=== PATIENT | female | born 1975 | race Caucasian/White ===

== ENCOUNTER 2016-10-05 17:53 | Emergency (ER) | payer BC ==
[2016-10-05 18:03] VITALS: TEMP 99.8; O2SAT 97
[2016-10-05] MEDS ORDERED: KETOROLAC TROMETHAMINE INJ 30 MG/ML VIAL IM ONE (18:05)
--- NOTE | 2016-10-05 18:06 | ED.PDOC ---
History of Present Illness - General Chief Complaint: ENT Problem Stated Complaint: right ear pain Time Seen by Provider: 10/05/16 18:04 Source: patient Exam Limitations: no limitations - History of Present Illness Initial Comments: Patient presents with right ear pain for one day. It started insidiously and has worsened. Pain is inside the ear canal with radiation to her cheek. She has had a subjective fever and some green drainage from the ear. She took a "days worth" of cephalexin that she had left over from a dental issue. No other symptoms. Timing/Duration: 24 hours Severity: moderate Improving Factors: nothing Worsening Factors: nothing Associated Symptoms: fever/chills Allergies/Adverse Reactions: Allergies NO KNOWN ALLERGY Allergy (Unverified 08/15/12 13:47) Home Medications: Ambulatory Orders Alprazolam [Xanax] 1 mg PO BID PRN 10/05/16 Amoxicillin & Pot Clavulanate [Augmentin] 875 mg PO BID #20 tab 10/05/16 Gabapentin [Neurontin] 300 mg PO BID 10/05/16 Xrrysqkp-Ciwjimcyf-Zh (Otic) [Neomycin/Polymyxin/Hydroc 1 %] 4 drop OT QID #1 bernadette 10/05/16 Sertraline HCl [Zoloft] 125 mg PO DAILY 10/05/16 Review of Systems - Review of Systems Constitutional: States: see HPI EENTM: States: see HPI Respiratory: States: no symptoms reported Cardiology: States: no symptoms reported Gastrointestinal/Abdominal: States: no symptoms reported Genitourinary: States: no symptoms reported Musculoskeletal: States: no symptoms reported Skin: States: no symptoms reported Neurological: States: no symptoms reported Endocrine: States: no symptoms reported Hematologic/Lymphatic: States: no symptoms reported Past Medical History (General) - Patient Medical History Hx Congestive Heart Failure: No Hx Diabetes: No Surgical History: Hysterectomy - Vaccination History Hx Influenza Vaccination: No - Social History Hx Tobacco Use: No - Female History Patient is a Female of Child Bearing Age (10 -57 yrs old): No Family Medical History - Family History Mother Family History: Unknown Living Status: Unknown Physical Exam - Physical Exam General Appearance: Alert Eye Exam: bilateral normal Ears, Nose, Throat: other - Right TM is occluded by green purulence and swelling. Left TM is clear. There is right post-auricular LAD with swelling of the external auditory canal and cheek. No nasal exudate. OP is clear. Neck: non-tender, full range of motion, supple, lymphadenopathy (R) Respiratory: chest non-tender, lungs clear, normal breath sounds Cardiovascular/Chest: normal peripheral pulses, regular rate, rhythm Gastrointestinal/Abdominal: normal bowel sounds, non tender, soft Skin Exam: normal color Progress - Progress Progress: 10/05/16 18:07 Toradol 30 mg IM x one. Departure - Departure Clinical Impression: Otitis externa, Otitis media Disposition: Discharge to Home or Self Care Condition: Good Departure Forms: ED Discharge - Pt. Copy, Patient Portal Self Enrollment Diet: resume usual diet Activity: increase activity as tolerated Referrals: Suhail Gross MD [Primary Care Provider] - 1-2 Weeks Prescriptions: Amoxicillin & Pot Clavulanate [Augmentin] 875 mg PO BID #20 tab Tyukamps-Fzbmaxxnc-Do (Otic) [Neomycin/Polymyxin/Hydroc 1 %] 4 drop OT QID #1 bernadette Home Medications: Ambulatory Orders Alprazolam [Xanax] 1 mg PO BID PRN 10/05/16 Amoxicillin & Pot Clavulanate [Augmentin] 875 mg PO BID #20 tab 10/05/16 Gabapentin [Neurontin] 300 mg PO BID 10/05/16 Kkexyhva-Xzopgxsfa-Lo (Otic) [Neomycin/Polymyxin/Hydroc 1 %] 4 drop OT QID #1 bernadette 10/05/16 Sertraline HCl [Zoloft] 125 mg PO DAILY 10/05/16 Additional Instructions: Take medications as directed. May use tylenol or ibuprofen for pain control. Apply ice to the external ear and cheek as needed for pain. Follow up with your regular doctor in one week for a re-check of the ear.
[2016-10-05 18:38] VITALS: BP 124/93
== END 2016-10-05 18:24 | disposition home or self-care (01) ==
LOC: ER 17:53
DX: H60.90 Unspecified otitis externa, unspecified ear (principal); H66.90 Otitis media, unspecified, unspecified ear

== ENCOUNTER 2016-10-07 20:14 | Emergency (ER) | payer BC ==
[2016-10-07 20:29] VITALS: TEMP 99.1
[2016-10-07] MEDS ORDERED: NEO/POLY/HC OTIC SUSP 10 ML BTTL ONE (20:38)
[2016-10-07] MEDS ORDERED: KETOROLAC TROMETHAMINE INJ 60 MG/2 ML VIAL IM ONE (20:43)
[2016-10-07] MEDS ORDERED: methylPREDNISolone SODIUM SUC 125 MG/2 ML VIAL IM ONE (20:43)
[2016-10-07] MEDS ORDERED: NEO/POLY/HC OTIC SUSP 10 ML BTTL RIGHT_EAR ONE (20:43)
--- NOTE | 2016-10-07 20:48 | ED.PDOC ---
History of Present Illness - General Chief Complaint: ENT Problem Stated Complaint: right ear pain/swelling, not any better Time Seen by Provider: 10/07/16 20:30 Source: patient, RN notes reviewed, Vital Signs reviewed Exam Limitations: no limitations - History of Present Illness Initial Comments: R ear pain and swelling. She was seen her on 10/05/16 and diagnosed with otitis externa. She was given antibiotic ear drops and Augmentin PO. She does not think the medicine is getting into her ear due to the swelling. Reports her pain and swelling is not improving. Timing/Duration: gradual Severity: severe EENT Location: ear (R) Prearrival Treatment: prescription meds Improving Factors: nothing Worsening Factors: nothing Associated Symptoms: change in hearing, ear drainage, facial pain/swelling Allergies/Adverse Reactions: Allergies NO KNOWN ALLERGY Allergy (Verified 10/07/16 20:29) Home Medications: Ambulatory Orders Alprazolam [Xanax] 1 mg PO BID PRN 10/05/16 Amoxicillin & Pot Clavulanate [Augmentin] 875 mg PO BID #20 tab 10/05/16 Gabapentin [Neurontin] 300 mg PO BID 10/05/16 Gbrdcbbb-Rkgabgela-Hr (Otic) [Neomycin/Polymyxin/Hydroc 1 %] 4 drop OT QID #1 bernadette 10/05/16 Sertraline HCl [Zoloft] 125 mg PO DAILY 10/05/16 HYDROcodone 7.5MG/APAP 325MG [[place] 7.5/325] 1 tab PO PRN 10/07/16 Review of Systems - Review of Systems Constitutional: States: no symptoms reported EENTM: States: see HPI Respiratory: States: no symptoms reported Cardiology: States: no symptoms reported Gastrointestinal/Abdominal: States: no symptoms reported Musculoskeletal: States: no symptoms reported Skin: States: no symptoms reported Neurological: States: no symptoms reported All other Systems: No Change from Baseline Past Medical History (General) - Patient Medical History Hx Seizures: No Hx Stroke: No Hx Dementia: No Hx Asthma: No Hx of COPD: No Hx Cardiac Disorders: No Hx Congestive Heart Failure: No Hx Pacemaker: No Hx Hypertension: No Hx Thyroid Disease: No Hx Diabetes: No Hx Gastroesophageal Reflux: No Hx Renal Disease: No Hx Cancer: No Hx of HIV: No Hx Hepatitis C: No Hx MRSA: No Surgical History: Hysterectomy - Vaccination History Hx Tetanus, Diphtheria Vaccination: No Hx Influenza Vaccination: No Immunizations Up to Date: No - Social History Hx Tobacco Use: No Hx Chewing Tobacco Use: No Hx Alcohol Use: No Hx Substance Use: No Hx Substance Use Treatment: No Hx Depression: No Feels Threatened In Home Enviroment: No Feels Threatened In a Relationship: No Hx Physical Abuse: No Hx Emotional Abuse: No Hx Suspected Abuse: No Family Medical History - Family History Mother Family History: Unknown Living Status: Unknown Physical Exam - Physical Exam General Appearance: Alert, Comfortable, No apparent distress, Well Developed, Well Groomed, Well Hydrated, Well Nourished Eye Exam: bilateral normal Ear Exam: right ear: discharge - ear canal swollen closed with small amount of drainage., erythema, other - Swelling and erythema of anterior ear and cheek infront of ear. Neck: non-tender, full range of motion, lymphadenopathy (R) Neurologic: alert, normal mood/affect, oriented x 3 Skin Exam: normal color, warm/dry - except for facial flushing Progress - Progress Progress: 10/07/16 20:51 Ear wick placed in R ear canal with green purulent drainage once in place. Antibiotic ear drops, 5, placed in ear and wick worked well. Gave Solu-medrol 125mg IM and Toradol 60mg IM 10/07/16 21:13 Patient reports that her ear is already feeling better. Departure - Departure Clinical Impression: Otitis externa Qualifiers: Otitis externa type: swimmer's ear Laterality: right Chronicity: acute Qualified Code(s): H60.331 - Swimmer's ear, right ear Time of Disposition: 21:14 Disposition: Discharge to Home or Self Care Condition: Good Departure Forms: ED Discharge - Pt. Copy, Patient Portal Self Enrollment Instructions: DI for Otitis Externa Diet: resume usual diet Activity: increase activity as tolerated Referrals: Suhail Gross MD [Primary Care Provider] - 1-2 Weeks Home Medications: Ambulatory Orders Alprazolam [Xanax] 1 mg PO BID PRN 10/05/16 Amoxicillin & Pot Clavulanate [Augmentin] 875 mg PO BID #20 tab 10/05/16 Gabapentin [Neurontin] 300 mg PO BID 10/05/16 Jfrhryxx-Algjhhszu-Mp (Otic) [Neomycin/Polymyxin/Hydroc 1 %] 4 drop OT QID #1 bernadette 10/05/16 Sertraline HCl [Zoloft] 125 mg PO DAILY 10/05/16 HYDROcodone 7.5MG/APAP 325MG [[place] 7.5/325] 1 tab PO PRN 10/07/16 Additional Instructions: Continue antibiotics and ear drops. Leave ear wick in until it falls out on own. IF not improving in 48-72 hours follow up with PCP.
[2016-10-07 21:21] VITALS: BP 154/87; O2SAT 97
== END 2016-10-07 21:21 | disposition home or self-care (01) ==
LOC: ER 20:14
DX: H60.331 Swimmer's ear, right ear (principal); Z79.899 Other long term (current) drug therapy
CPT/HCPCS: J1885; J2930

== ENCOUNTER → 2017-11-21 | Outpatient (CLI) | payer BC | LOC: GMAH 10:40 | PROVIDERS: ATTEND Family Medicine | DX: R53.82 Chronic fatigue, unspecified (principal) ==